=== PATIENT | male | born 1940 | race Caucasian/White ===

== ENCOUNTER 2016-12-07 08:00 | Inpatient (IN) | payer MEDICARE, OTHER ==
[~2016-12-07] VITALS: Ht 182.9 cm; Wt 58.2 kg
--- NOTE | ~2016-12-07 | CON ---
[facility] 76 [facility] [address] ROOM: [place] [address] LOCATION: GPCU ADMIT DATE: 12/07/2016 Consultation DISCHARGE DATE: FAMILY PHYSICIAN: Manjit Ray MD ATTENDING PHYSICIAN: STEFFANIE FUENTES DATE OF CONSULTATION: 12/07/2016 REFERRING PHYSICIAN: Amelie Verdin MD TIME: 1536 hours. The patient was seen in neurological consultation. CHIEF COMPLAINT: Altered mental status. HISTORY OF PRESENT ILLNESS: This history was obtained from his and from his chart as the patient has an altered status. This is a 76-year-old male with a history of a right MCA stroke requiring craniectomy. The patient got up to use the restroom and when he reached the kemp, the saw him fall. He was sleepy and the could not help him up, so she called 911. He went to the [facility], where a CT scan revealed no new processes. He was noted to have heart rates in the 40s, so he was started on dopamine and transferred to [facility]. He denies headache or hitting his head. There has been no weight loss or gain. He has a great appetite. He has had chills. He denies vision changes. There was no total loss of consciousness. REVIEW OF SYSTEMS: All systems were reviewed and are negative except as mentioned in the HPI. PRIOR MEDICAL HISTORY: 1. Right MCA stroke. 2. Factor V Leiden. 3. Hypothyroidism. 4. Right lower lobe nodule. 5. Hypertension. 6. Right lower extremity DVT. 7. IVC filter. 8. GERD. 9. Aspiration pneumonia. MEDICATIONS: 1. Amitiza 24 mcg p.o. daily p.r.n. constipation. PATIENT'S NAME: [facility] AGE: 76 Y [address] ROOM: [place] [address] LOCATION: GPCU ADMIT DATE: 12/07/2016 Consultation DISCHARGE DATE: FAMILY PHYSICIAN: Manjit Ray MD ATTENDING PHYSICIAN: STEFFANIE FUENTES 2. Docusate sodium 100 mg p.o. daily. 3. Warfarin. 4. Omeprazole 40 mg p.o. daily. 5. Ativan 0.5 mg p.o. q.i.d. p.r.n. anxiety. 6. Losartan 100 mg p.o. daily. 7. Flomax 0.4 mg p.o. q.h.s. 8. Levothroid 75 mcg p.o. daily a.c. 9. VESIcare 10 mg p.o. daily for bladder spasms. 10. Mag-Ox 400 mg p.o. daily. 11. Cholecalciferol 2000 units one tab p.o. daily. 12. Zocor 20 mg p.o. q.h.s. 13. Vitamin B12 1000 mcg/mL, 1000 mcg subcu. ALLERGIES: NO KNOWN MEDICAL ALLERGIES. FAMILY HISTORY: His father did have diabetes. SOCIAL HISTORY: He denies alcohol or drug use. No smoking history. PHYSICAL EXAMINATION: VITAL SIGNS: Blood pressure 145/80, heart rate 45, temp 99, respirations 16. GENERAL: Drowsy but arousable. Thin in stature. HEENT: Atraumatic and normocephalic. SKIN: Mottling to bilateral knees. NEURO: Arousable and oriented to self only. NIH stroke scale shows left arm drift and ataxia. He does not know the age or his month. NIH Stroke Scale is 4. No focal weakness except the left arm drift. DIAGNOSTIC DATA: His MRI reveals no new ischemia or hemorrhage. His right MCA area shows a previous infarct. His UA does have packed field of WBCs and many bacteria. Thankfully, in summary the patient has had no new stroke. His mentation is certainly not baseline. ASSESSMENT AND PLAN: 1. Acute metabolic encephalopathy. We will await urine cultures. He is being treated for his urine. We can follow with serial neuro exams. 2. In monitoring the patient, we could consider seizure on the list of differentials. He did not have any tonic-clonic movement or head turning or incontinence, but we can monitor him here in the hospital. 3. Bradycardia. The patient is being treated with dopamine. After his urine clears up, they may consider a pacemaker. PATIENT'S NAME: GABRIEL TRAMMELL [facility] AGE: 76 Y [address] ROOM: [place] [address] [facility] ADMIT DATE: 12/07/2016 Consultation DISCHARGE DATE: FAMILY PHYSICIAN: Manjit Ray MD ATTENDING PHYSICIAN: STEFFANIE FUENTES We would like to thank Dr. Verdin for the opportunity to participate in this patient's care. LAURIE GOTTLIEB APRN FOR EMRE ALEXANDER MD PP/modl /[id number] d: 12/18/16 1251 t: 01/08/17 1629, CONSULTATION REPORT
--- NOTE | ~2016-12-07 | ESTC ---
Cardiac Perfusion Imaging Demographics Patient Name VALERI Bradford Gender Male Patient Number [id number] Race Visit Number [id number] Ethnicity Corporate ID Room Number G6303 Accession Number [id number] Height 72 inches Date of 1940 Weight 132 pounds Interpreting Velvet Kinsey Date of study 12/10/2016 Physician Supervising /HEMANTP Velvet Kinsey NM Technologist Venus De La Paz MD Ordering Physician Velvet Kinsey Stress MD low voltage technician Stress ECG Reading Velvet Kinsey Nurse Chan Bradford Physician RN Latisha Cedillo RN Medications Reviewed with Patient prior to Procedure. Procedure Procedure Type: Nuclear Stress Test:Pharmacological, Lexiscan, Cardiolite Stress Test Procedure Start time: 12/10/2016 09:20 Indications: Elevated Troponin, Bradycardia, Hypertension and Dyslipidemia. Risk Factors The patient risk factors include:cerebrovascular disease, hypercholesterolemia, treated hypertension and dyslipidemia. Conclusions Summary Lexiscan cardiolite with no EKG changes of ischemia. Medium to large inferior fixed defect of moderate degree most consistent with soft tissue attenuation. LVEF: 67%. Normal WM. Stress Protocols Resting ECG RSR. PACs. Pre-stress physical exam: Un changed. Predicted HR: 143 bpm ECG Findings No ECG changes suggestive of ischemia. Arrhythmias No new rhythm abnormality. Symptoms No symptoms with Lexiscan infusion. Stress Interpretation Lexiscan study with normal hemodynamic response. No symptoms. No EKG changes of ischemia or arrythmias. Imaging Results High risk findings Summed scores - LV dilatation (TID) - Summed stress score: 7 - Summed rest score: 14 - Summed difference score: -7 Stress ejection Ejection fraction:68 % EDV :120 ml ESV :39 ml Stroke volume :81 ml LV mass :146 gr LV size:Normal Normal LV function Imaging Protocols Rest Stress Isotope:Tc99m Sestamibi IV Isotope: Tc99m Sestamibi IV Isotope dose:10.6 mCi Isotope dose:33.1 mCi Date:12/10/2016 07:17 Date:12/10/2016 10:06 Technique: SPECT Technique: Gated Supine SPECT Supine IV remains in place after procedure. Scan Time:45-60 minutes post Scan Time:45-60 minutes post injection injection Procedure Medications - Regadenoson (Lexiscan) 0.4 mg IV over 10-15 sec. I.V. 0.4 mg. Medications administered per verbal order and read back to physician prior to administration. Medical History Admission Data Admission date: 12/07/2016 Admission Time: 09:00 Hospital Status: Inpatient. Signatures dtt: Amelie Verdin dtd: 12/10/16 0920 Physician Self Edit
--- NOTE | ~2016-12-07 | DS ---
PATIENT'S NAME: GABRIEL TRAMMELL [facility] AGE: 76 Y [address] ROOM: [address] [address] LOCATION: GPCU ADMIT DATE: 12/07/2016 Discharge Summary DISCHARGE DATE: 12/19/2016 FAMILY PHYSICIAN: Manjit Ray MD ATTENDING PHYSICIAN: Spencer Whyte DISCHARGE DIAGNOSES: 1. Urosepsis. 2. Sick sinus syndrome, status post pacer. 3. Hypothyroidism, treated. 4. Hypertension with moderate to severe mitral regurgitation. 5. Severe malnutrition. 6. History of CVA. 7. Factor V deficiency. 8. Left hip fracture, status post operative repair and internal fixation. PROCEDURES: Hip repair. REASON FOR ADMISSION: The patient was admitted for altered mental status and diagnosed with acute metabolic encephalopathy. It turned out he had sepsis secondary to a really odd urinary pathogen. He had symptomatic bradycardia and received a pacer, and then the day he was supposed to be discharged, he fell and broke his left hip and had internal fixation. LABORATORY DATA: Blood sugars have been beautiful. Chemistries: His last set of electrolytes were excellent with normal sodium, potassium, BUN and creatinine were normal. GFR was 72. His liver function tests were normal except for alkaline phosphatase, which was actually just low. Indirect bilirubin was minimally elevated at 0.9 and a direct was normal. Hematology: Last white count was 10.1 that was down from 10.5; hemoglobin 9.7 postoperatively, apparently had a normal hemoglobin preoperatively, though his MCV is elevated at 101. He is taking B12. His platelets were normal. He has a factor V Leiden deficiency. He is heterozygous for that. Urinalysis today showed 20-50 white cells with only 0-2 epithelials, 10-20 red cells, moderate bacteria. HOSPITAL COURSE: He has been literally up and down with his pacer, hip repair, and his delirium. He is a little bit quieter today, which is why we checked a UA. I am going to cover him with Levaquin 750 for 5 days to nuke whatever is in his bladder, and I think we should have that covered. Given his white count is okay and his physical exam is benign, we will go ahead and discharge him to intermediate care today. Note that he will need to be on Lovenox fully anticoagulated until his Coumadin is up to therapeutic because of his factor V Leiden deficiency. We will give him some iron for a month to bring his hemoglobin back up. Percocet is written for pain, and Cardiology PATIENT'S NAME: GABRIEL TRAMMELL [facility] AGE: 76 Y [address] ROOM: [place] [address] LOCATION: GPCU ADMIT DATE: 12/07/2016 Discharge Summary DISCHARGE DATE: 12/19/2016 FAMILY PHYSICIAN: Manjit Ray MD ATTENDING PHYSICIAN: Spencer Whyte added a low dose of beta tawanna to his regimen this morning because he had a 10-beat run of ventricular tachycardia last night. It was unsustained and asymptomatic, so feeling is that with amiodarone and beta-tawanna therapy he is still good to go. Diet will be per dietary. Note that he is severely malnourished, and that will be an issue ongoing. Medications will be per nursing medication reconciliation and activity will be per physical therapy and orthopedics. Followup will be with primary, Dr. Manjit Ray, and Dr. Verdin as well as Orthopedics. MD RACHANA BRIAN/nadeen /[id number] d: 12/19/16 2353 t: 12/20/16 1709, DISCHARGE SUMMARY
--- NOTE | ~2016-12-07 | ECHO ---
Transthoracic Echocardiography Report (TTE) Demographics Patient Name GABRIEL TRAMMELL Date of Study 12/07/2016 Patient Number [id number] Visit Number [id number] Date of 1940 Room Number G6303 Gender Male Number Age 76 year(s) Referring Velvet Kinsey Therapy Aide Nena Sifuentes RDCS, Physician RVT, RDMS, UNION CONTRACT REPRESENTATIVESALVADOR Huertas MD Physician Interpreting Velvet Kinsey MD Recovery Advocate Physician Supervising Ordering MD/MLP Physician Nurse Stress Agricultural Systems Specialist Conclusions Contractility Score Summary At rest the following contractility abnormalities were noted: Hypokinesis of the Basal infero-lateral segment. Contractility of all other segments appeared normal. Summary The estimated left ventricular ejection fraction is 60-65% with normal WM,internal dimension and wall thickness. Diastolic assessment reveals Grade II pseudonormal diastolic function . Mild biatrial dilatation. Informed consent was obtained, bubble study was done, there is no evidence for a PFO or ASD. Moderate to severe mitral regurgitation. The aortic valve is mildly sclerotic. There is moderate aortic regurgitation by color Doppler. Mild tricuspid regurgitation by color Doppler. There is mild pulmonary hypertension. The pulmonary pressure (RVSP) is 42 mmHg. Procedure Type of Study TTE procedure:2D Echocardiogram, M-Mode, Doppler , Color Doppler. Procedure Date Date: 12/07/2016 Start: 04:04 PM Study Location: Inpatient Portable Technical Quality: Fair due to lung interference. Indications:Bradycardia. Additional Indications:syncope vs. stroke with bubble per Dr. Chaidez Patient Status: Timed HR: 46 bpm BP: 166/67 mmHg M-Mode/2D Measurements LV Diastolic Dimension: 3.92 cm LV Systolic Dimension: 2.19 cm LV Septum Diastolic: 1.06 cm LV PW Diastolic: 1.05 cm AO Root Dimension: 2.6 cm Cardiac Output: 4.53 l/min AV Cusp Separation: 2.3 cm RV Diastolic Dimension: 2.61 cm LA volume: 62 ml LVOT: 1.8 cm RV Base: 3.8 cm LVOT VTI: 38.7 cm RV Mid: 2.4 cm LV Stroke volume: 98.43 ml TDI-S': 13 cm/s Doppler Measurements AV Peak Velocity: 1.56 m/s MV Peak E-Wave: 1.02 m/s AV Peak Gradient: 9.73 mmHg MV Peak A-Wave: 0.57 m/s AV Mean Gradient: 4 mmHg MV E/A Ratio: 1.78 LVOT Peak Velocity: 1.33 m/s MV P1/2t: 61 msec AV P1/2t: 762 msec TR Gradient:33.87 mmHg PV Peak Velocity: 0.97 m/s Estimated RAP:8 mmHg PV Peak Gradient: 3.78 mmHg Estimated RVSP: 42 mmHg Estimated PASP: 41.87 mmHg E' Septal Velocity: 0.07 m/s A' Septal Velocity: 0.07 m/s E' Lateral Velocity: 0.09 m/s A' Lateral Velocity: 0.08 m/s Findings Left Ventricle The left ventricle with normal internal dimension,wall thickness,WM and EF. Diastolic assessment reveals Grade II pseudonormal diastolic function . Right Ventricle Normal right ventricle structure and function. Left Atrium The left atrium is mildly dilated by LA volume index measurement. Informed consent was obtained, bubble study was done, there is no evidence for a PFO or ASD. Right Atrium Mildly dilated RA. Mitral Valve Moderate to severe functional mitral regurgitation by color Doppler is present. PISA data is inaccurate due to technical limitations. The vena contracta is 0.41 cm., which is consistent with moderate mitral regurgitation. Systolic flow reversal is demonstrated in the pulmonary vein waves and is consistent with severe regurgitation. Mild mitral annular calcification. Aortic Valve The aortic valve is mildly sclerotic. There is moderate aortic regurgitation by color Doppler. Regurgitant jet height to lvot ratio is 0.28. Tricuspid Valve Mild tricuspid regurgitation by color Doppler. There is mild pulmonary hypertension. The pulmonary pressure (RVSP) is 42 mmHg. Pulmonic Valve Trivial pulmonic valve regurgitation by color Doppler. Normal pulmonic valve structure and function. Pericardial Effusion No evidence of pericardial effusion. Miscellaneous Visualized portions of the aortic root and ascending aorta appear normal in size. Pleural Effusion No evidence of pleural effusion. Signature dtt: Amelie Verdin dtinder: 12/07/16 1604 Physician Self Edit
--- NOTE | ~2016-12-07 | CON ---
PATIENT'S NAME: GABRIEL TRAMMELL [facility] AGE: 76 Y [address] ROOM: [place] [address] LOCATION: GPCU ADMIT DATE: 12/07/2016 Consultation DISCHARGE DATE: FAMILY PHYSICIAN: Manjit Ray MD ATTENDING PHYSICIAN: STEFFANIE FUENTES DATE OF CONSULTATION: 12/11/2016 REFERRING PHYSICIAN: Kilo Fields MD REASON FOR CONSULT: Upper arm skin tears. HISTORY OF PRESENT ILLNESS: This is a 76-year-old male patient who was admitted to [facility] with altered mental status. He has a history of CVA, hypertension, and venous insufficiency. He is from [place]. He was found by his in the hallway and first presented to [place] and transferred here for further care. On my encounter, he is yelling out and slightly agitated. He is unable to provide the health history. No family at bedside. Nursing reports scattered skin tears to his arms as well as venous staining to his lower legs. Brasher catheter intact. The patient is in a Id- bed. PAST MEDICAL HISTORY: Obtained from previous records; CVA, factor V deficiency, hypothyroidism, hypertension, DVT, GERD, and aspiration pneumonia. PAST SURGICAL HISTORY: Appendectomy, varicose vein stripping, and craniotomy. FAMILY HISTORY: Positive for lung cancer. SOCIAL HISTORY: The patient lives in [place] with his . Per previous records, no toxic habits or tobacco use noted. ALLERGIES: NO KNOWN DRUG ALLERGIES. CURRENT MEDICATIONS: Please refer to the medication administration record. PATIENT'S NAME: GABRIEL TRAMMELL [facility] AGE: 76 Y [address] ROOM: [place] [address] LOCATION: GPCU ADMIT DATE: 12/07/2016 Consultation DISCHARGE DATE: FAMILY PHYSICIAN: Manjit Ray MD ATTENDING PHYSICIAN: STEFFANIE FUENTES REVIEW OF SYSTEMS: Unable to complete due to the patient's mentation. PHYSICAL EXAMINATION: VITAL SIGNS: Temperature 95.3, pulse 43, respirations 16, blood pressure 168/72, and pulse oximetry 99% on room air. Height 6 feet even and weight 57.3 kg. GENERAL: The patient is alert, yelling out. States he is in [place]. Does note he is in the hospital. Agitated at times. NEUROLOGICAL: Unable to fully assess. CARDIOVASCULAR: Bradycardia on monitor. EXTREMITIES: +1 pedal pulses at best. No edema. Obvious hemosiderin staining. Mycotic toenails. Bony arthritic changes. SKIN: Bilateral arms covered with ecchymosis. The patient has 3 intact brown scabs to his left elbow. Dry skin tear present. Small skin tear to left hand, reapproximated flap. Groin folds intact. The patient refused buttocks examination. Nursing noted no current issues. LABORATORY DATA: White blood cell count 6.5, hemoglobin 11.8, hematocrit 34.9, and platelets 195. Sodium 141, potassium 3.9, chloride 108, bicarbonate 27, BUN 12, creatinine 1.1, and glucose 125. ASSESSMENT AND PLAN: Again, this is a 76-year-old male patient who was admitted to [facility] with altered mental status. Wound Care consult for upper arm skin tears. 1. Bilateral arm ecchymoses with left hand skin tear. The patient needs protection and emollient therapy. I encouraged Nursing to apply Aloe [place] as needed. Nursing notes the patient does like to apply himself. Encouraged it to be at the bedside. We will cover left hand skin tear with a foam dressing, leaving intact for one week. Nursing may change p.r.n. saturation or if it falls off. The patient is to have elbow protectors on and bilateral bandage to his arms at all times. 2. Pressure ulcer prevention. I would like Nursing to turn him in bed q.2 hours from side to side. He is to have bilateral foam boots on to prevent heel ulcers. Dietary is current on his case. I would like to thank Dr. Fields for this consult. MARVIN NG APRN FOR MICAH RADER MD PATIENT'S NAME: GABRIEL TRAMMELL [facility] AGE: 76 Y [address] ROOM: [place] [address] LOCATION: GPCU ADMIT DATE: 12/07/2016 Consultation DISCHARGE DATE: FAMILY PHYSICIAN: Manjit Ray MD ATTENDING PHYSICIAN: STEFFANIE FUENTES/modl /[id number] d: 12/11/16 1913 t: 12/27/16 0840, CONSULTATION REPORT
--- NOTE | ~2016-12-07 | HP ---
PATIENT'S NAME: GABRIEL TRAMMELL [facility] AGE: 76 Y [address] ROOM: [place] [address] LOCATION: GPCU ADMIT DATE: 12/07/2016 History & Physical DISCHARGE DATE: FAMILY PHYSICIAN: PHYSICIAN, UNKNOWN ATTENDING PHYSICIAN: STEFFANIE FUENTES DATE OF SERVICE: CHIEF COMPLAINT: Altered mental status. HISTORY OF PRESENT ILLNESS: A 76-year-old gentleman with a past medical history of right middle cerebral artery extensive stroke, also has a history of factor V deficiency, on chronic anticoagulation. He was at home this morning when he was found, about 4:30, lying in the hallway by the . Last time seen normal was about 10 p.m. He was difficult to arouse at this point and had altered mental status and decreased alertness. He was taken to the [facility] where a CAT scan and initial lab work were done and was transferred here for further medical care. Initial CAT scan did not show any acute intracranial changes except he had old right frontoparietal and temporal chronic encephalomalacia given he had a stroke as well as craniotomy done. On my encounter, he is still drowsy, but he is answering questions appropriately and moving all extremities purposefully. He, in the outside hospital, was started on dopamine drip given he has low heart rates, which he has a history of. EKG was also done in the outside facility which showed sinus bradycardia with rates at 45. He said he does not have any headache at this point, does not have any trouble, does not have any chest pain. No shortness of breath. No sputum production. He specifically said he does not have any burning on urination. No constipation or diarrhea. No extremity swelling. REVIEW OF SYSTEMS: All other systems reviewed and were negative except what is mentioned in the HPI. PAST MEDICAL HISTORY: Significant for CVA; factor V deficiency; hypothyroidism; right lower lobe nodule; hypertension; and right lower extremity DVT, status post IVC filter. He has a history of GERD and aspiration pneumonia. MEDICATIONS: Being reconciled right now. ALLERGIES: NO KNOWN DRUG ALLERGIES. PATIENT'S NAME: MALINDA TRAMMELLTIS Sanchez [facility] AGE: 76 Y [address] ROOM: [place] [address] LOCATION: GPCU ADMIT DATE: 12/07/2016 History & Physical DISCHARGE DATE: FAMILY PHYSICIAN: PHYSICIAN, UNKNOWN ATTENDING PHYSICIAN: STEFFANIE FUENTES FAMILY HISTORY: Positive for diabetes in father. SOCIAL HISTORY: No alcohol or drug abuse. PHYSICAL EXAMINATION: VITAL SIGNS: Blood pressure 145/80 on 3 mcg of dopamine, heart rate 45, temperature 99 axillary, respiratory rate of 16, and saturating 95% on room air. GENERAL: Drowsy, but alert and oriented x3. HEENT: Head: Atraumatic, normocephalic. Eyes: Nonicteric. No pallor. Oropharynx: Very dry mucous membranes. CARDIOVASCULAR: S1 and S2, bradycardic. No murmurs, gallops, or rubs. LUNGS: Clear to auscultation bilaterally. ABDOMEN: Soft, nontender, and nondistended. Bowel sounds are present. EXTREMITIES: No clubbing, cyanosis, or edema. PSYCHIATRIC: Flat mood and affect. MUSCULOSKELETAL: Extensive sarcopenia noted. No muscle tenderness or joint swelling noted. SKIN: Very dry skin noted. NEUROLOGIC: On gross neurological examination, right side power is 5/5 in the upper and lower extremities, left side power 3/5. ENDOCRINE: No thyromegaly or myxedema noted. LYMPHATIC: No lymphangiitis or lymphadenopathy noted. LABORATORY AND DIAGNOSTIC DATA: As mentioned above, CT scan did not show any acute changes, but rather old changes of the right stroke and craniotomy with underlying encephalomalacia. Lab work was done at the outside facility which was only impressive for creatinine of 1.6, and first set of troponin was 0.017. CBC and BMP were unremarkable. UA was done which did show evidence of elevated leukocyte esterase and too numerous to count white blood cells. No chest x-ray was obtained over there. ASSESSMENT: 1. Acute metabolic encephalopathy. 2. Likely sepsis. 3. Symptomatic bradycardia. 4. Elevated troponin levels. 5. Hypothyroidism. 6. History of deep venous thrombosis, status post IVC filter. PATIENT'S NAME: GABRIEL TRAMMELL [facility] AGE: 76 Y [address] ROOM: [address] [place], [place] [address] LOCATION: GPCU ADMIT DATE: 12/07/2016 History & Physical DISCHARGE DATE: FAMILY PHYSICIAN: PHYSICIAN, UNKNOWN ATTENDING PHYSICIAN: KHALID,VALIENTE A 7. Hypertension. 8. Gastroesophageal reflux disease. 9. Of note, his INR was found therapeutic at 2.5 at the outside facility. PLAN: We are going to admit this patient to the PCU here. At this point, the differential diagnosis of acute metabolic encephalopathy is broad, but first we are going to treat this urinary tract infection and give him intravenous fluids as well as antibiotics. We are going to obtain urine culture, 2 sets of blood cultures, and repeat troponin levels here. Cardiology is already aware of this patient, and they recommended to the outside facility to start the dopamine drip. We will get them involved as well. Once the basic lab work is done and initial bolus of fluids is given, we will get the patient to the MRI to delineate if there is any intracranial ischemic or ischemic etiology to this encephalopathy. He is already therapeutically anticoagulated. SCDs only at this point. We are going to check for prealbumin level. He has severe malnutrition. Chest x-ray is pending at this point. ABG and lactate are also pending. We are also going to obtain procalcitonin level. Further management will depend upon his progress in the hospital. MD SMITH GUZMAN/nadeen /[id number] D: T: 655 HISTORY & PHYSICAL
--- NOTE | ~2016-12-07 | CON ---
PATIENT'S NAME: MALINDA TRAMMELLTIS Sanchez [facility] AGE: 76 Y [address] ROOM: [id number] [place], [place] [address] LOCATION: GPCU ADMIT DATE: 12/07/2016 Consultation DISCHARGE DATE: FAMILY PHYSICIAN: PHYSICIAN, UNKNOWN ATTENDING PHYSICIAN: STEFFANIE FUENTES DATE OF CONSULTATION: 12/07/2016 REFERRING PHYSICIAN: Amelie Verdin MD Dear Colleagues: Thank you for asking me to see Alona who is a 76-year-old male patient who was found by his around 430 in the morning, lying in the hallway with some decreased responsiveness. He was last seen in his usual state of health around 10:00 p.m.. He was taken to [facility] where he had reasonably good power in all his four extremities, but he was still fairly drowsy. He was trying to answer some of the questions. His heart rate was in the upper 30s and lower 40s and I was called. I had suggested putting him on dopamine 2 mcg and transfer him here with the possibility of this being postictal state or something related to bradycardic episodes or pauses. The patient had left-sided hemiplegia about 3 years ago. He has recovered to some extent from that and is currently able to get around with a cane. He denies having any trouble with chest pains or shortness of breath. His functional capacity is difficult to measure because he is not on any sustained exercise program. He currently does activities there are definitely less than four METS. He has no paroxysmal nocturnal dyspnea or orthopnea. He has not had any previous episodes like these and had denies having any lightheadedness, dizziness, syncope, or presyncope. He denies any palpitations or ankle swelling. The patient has history of hypertension and elevated cholesterol. He is not a diabetic and he is not a smoker. There is no family history of premature coronary artery disease. He denies PA or angina or nitroglycerin use. He has a history of rheumatic fever and heart murmur. He has never had congestive heart failure or atrial fibrillation. He has factor V Leiden deficiency for which he is on chronic Coumadin therapy. His current list of medications are, 1. Amitiza one a day. 2. Allergy extracts. [facility] 76 Y [address] ROOM: [address] [address] LOCATION: GPCU ADMIT DATE: 12/07/2016 Consultation DISCHARGE DATE: FAMILY PHYSICIAN: PHYSICIAN, UNKNOWN ATTENDING PHYSICIAN: STEFFANIE FUENTES 3. MiraLAX. 4. Stool softener. 5. Warfarin 2 mg. 6. Omeprazole 40 mg a day. 7. Lorazepam 0.5 mg 4 times a day. 8. Losartan 100 mg once a day. 9. Tamsulosin 0.4 mg a day. 10. Synthroid 75 mcg a day. 11. VESIcare 10 mg once a day. 12. Magnesium oxide 400 mg a day. 13. Vitamin D3. 14. Zocor 20 mg a day. 15. Cyanocobalamin 1 mg monthly. ALLERGIES: NO KNOWN DRUG ALLERGIES. PAST MEDICAL HISTORY: 1. History of pernicious anemia. 2. Factor V Leiden deficiency. 3. Hypothyroidism. 4. Frontal lobe dementia. 5. History of CVA as mentioned earlier with cognitive impairment. 6. History of venoablation therapy due to venous insufficiency. 7. GERD. 8. IBS. 9. CKD. 10. Neurogenic bladder. 11. BPH. 12. Chronic anticoagulation therapy. 13. Status post craniotomy for CVA. 14. Inferior vena cava filter. 15. Appendectomy. 16. Herniorrhaphy on the inguinal aspect. 17. History of PEG tube placement and suprapubic tube placement. SOCIAL HISTORY: The patient is . He denies abusing alcohol. His appetite and weight are stable. Sleep is poor. FAMILY HISTORY: No premature coronary artery disease. REVIEW OF SYSTEMS: A 12-point review of systems revealed the following positives. PATIENT'S NAME: GABRIEL TRAMMELL [facility] AGE: 76 Y [address] ROOM: [address] [address] LOCATION: GPCU ADMIT DATE: 12/07/2016 Consultation DISCHARGE DATE: FAMILY PHYSICIAN: PHYSICIAN, UNKNOWN ATTENDING PHYSICIAN: STEFFANIE FUENTES 1. History of migraine headaches in the distant past. 2. History of allergies. 3. Heartburns. 4. Questionable history of gallbladder problems. 5. Depression. 6. Skin cancers. PHYSICAL EXAMINATION: GENERAL: The patient is awake and alert. He easily falls asleep. VITAL SIGNS: His blood pressure is 160/80, heart rate is in the 40s and regular on 2 mcg of dopamine, respirations 18, and afebrile. HEENT: Normal. NECK: Supple. No JVD, thyromegaly, lymphadenopathy, or carotid bruit. PMI is not well located. HEART: First and second heart sounds are regular. There are no added sounds or murmurs. CHEST: Clear to auscultation. ABDOMEN: Soft and nontender. Bowel sounds are normally present. EXTREMITIES: Reveal no edema. CENTRAL NERVOUS SYSTEM: Intact. ASSESSMENT: A 76-year-old male patient who had an episode of unresponsiveness this morning. This is either due to a seizure activity or due to significant bradycardia, pauses, or arrhythmias. RECOMMENDATIONS: We will have the neurologist see him and he is getting an MRI of the brain as well. In the meantime, we will hold off the Coumadin for the time being and start heparin if he becomes subtherapeutic less than 2. There is a possibility he might benefit from a permanent pacemaker placement. We will check his echocardiogram, rule him out and check his proBNP and then possibly at least do a stress test before proceeding ahead with a permanent pacemaker. Again, I appreciate this opportunity to participate in the care of Alona. MD LUIS M LAINEZ/nadeen PATIENT'S NAME: GABRIEL TRAMMELL [facility] AGE: 76 Y [address] ROOM: [place] [address] LOCATION: GPCU ADMIT DATE: 12/07/2016 Consultation DISCHARGE DATE: FAMILY PHYSICIAN: PHYSICIAN, UNKNOWN ATTENDING PHYSICIAN: STEFFANIE FUENTES /[id number] d: 12/07/167 t: 12/11/16 1224, CONSULTATION REPORT
--- NOTE | ~2016-12-07 | CON ---
[facility] 76 [facility] [address] ROOM: [place] [address] LOCATION: GPCU ADMIT DATE: 12/07/2016 Consultation DISCHARGE DATE: FAMILY PHYSICIAN: Manjit Ray MD ATTENDING PHYSICIAN: STEFFANIE FUENTES DATE OF CONSULTATION: 12/15/2016 REFERRING PHYSICIAN: Amelie Verdin MD TIME: 8 p.m. HISTORY OF PRESENT ILLNESS: Mr. Trammell is a 76-year-old gentleman. He was admitted to [place] on December 07 with a stroke. Care required placement of a pacemaker. Sustained an injury to his left hip with a displaced base of femoral neck fracture. No other injuries. Prior to admission, he was a limited household ambulator. MEDICATIONS: See list which includes anticoagulation with heparin. ALLERGIES: ONLY ENVIRONMENTAL. PAST MEDICAL HISTORY: Stroke; factor V deficiency, anticoagulated; hypothyroidism; hypertension; and DVT, status post IVC filter. SOCIAL HISTORY: He does not currently smoke or drink. FAMILY MEDICAL HISTORY: Remarkable for diabetes. PERSONAL AND SOCIAL HISTORY: He lives at home with his , but barely getting by. PHYSICAL EXAMINATION: GENERAL: A cachectic, white male in minimal distress. HEENT: Hears and sees. BACK: Nontender. PELVIS: Stable. HEART: Pulse rate is regular. LUNGS: Able to take in a deep breath. PATIENT'S NAME: GABRIEL TRAMMELL [facility] AGE: 76 Y [address] ROOM: [place] [address] LOCATION: GPCU ADMIT DATE: 12/07/2016 Consultation DISCHARGE DATE: FAMILY PHYSICIAN: Manjit Ray MD ATTENDING PHYSICIAN: STEFFANIE FUENTES ABDOMEN: Soft and nontender. EXTREMITIES: Painful motion of the left hip. Can move both of his legs. IMAGING DATA: X-rays show a displaced left hip base of neck fracture. Minimal osteoarthritis. ASSESSMENT AND PLAN: For reduction and fixation of left hip fracture with TFN system. Risks, benefits, and alternatives have been discussed with the patient, the daughter, and the . Understand there is no guarantee that he will return to ambulation. Certainly, he is very osteoporotic and is at risk for additional fractures. Important to avoid falls. JON STINSON MD DPM/nadeen /[id number] d: 12/16/16 1326 t: 12/19/16 1222, CONSULTATION REPORT
--- NOTE | ~2016-12-07 | OR ---
PATIENT'S NAME: GABRIEL TRAMMELL [facility] AGE: 76 Y [address] ROOM: [address] [address] LOCATION: GPCU ADMIT DATE: 12/07/2016 OR/Procedure Report DISCHARGE DATE: FAMILY PHYSICIAN: Manjit Ray MD ATTENDING PHYSICIAN: STEFFANIE FUENTES SURGEON: Campbell Stinson MD TAX ADJUSTER: DATE OF PROCEDURE: 12/16/2016 DIAGNOSIS: Displaced left hip base and neck fracture. PROCEDURE: Reduction of left hip fracture and fixation with TFN system. ANESTHESIA: General. INDICATION: Left hip displaced base and neck fracture for reduction and fixation. Risks, benefits, and alternatives have been discussed with the patient and the family. No guarantee of return to ambulation. DESCRIPTION OF PROCEDURE: Mr. Trammell was taken to the operating room, 2 g Kefzol given intravenously for prophylaxis. General anesthetic via endotracheal tube. Placed on the fracture table supine position. Right leg was protected in the candy cane. Left leg was placed in traction and gently reduced the fracture, documented good reduction with the fluoroscope. The left flank, hip, and thigh prepared with DuraPrep, draped sterilely. A 3 cm incision was made just above the greater trochanter in line with the axis of the femur. Dissection to the iliotibial band. Iliotibial band was divided longitudinally for the length incision. Using AO Synthes system, guidewire was placed through the greater trochanter down the canal, proximally reamed. A mid length 11 mm diameter alejandra was driven in place. The alignment guide was used to place a guidewire through the neck into the head. This was confirmed good position with the fluoroscope. Lateral cortex drilled, 100 mm helical blade was driven in place. It was locked in a dynamic position. Distal locking screw placed. Procedure was done without complications. Wounds irrigated. Iliotibial band closed with 0 Vicryl. Subcutaneous tissues closed with 2-0 Vicryl. Skin was closed with jemima. Procedure was done without complication. Estimated blood loss from the procedure was 150 mL, to recovery room in stable condition. FINDINGS: Good reduction of the fracture and adequate fixation. CAMPBELL P STINSON, MD PATIENT'S NAME: GABRIEL TRAMMELL [facility] AGE: 76 Y [address] ROOM: [address] [address] LOCATION: [facility] ADMIT DATE: 12/07/2016 OR/Procedure Report DISCHARGE DATE: FAMILY PHYSICIAN: Manjit Ray MD ATTENDING PHYSICIAN: STEFFANIE FUENTES DPM/nadeen /[id number] d: 12/16/16 1338 t: 12/19/16 1219, OPERATIVE SUMMARY
--- NOTE | ~2016-12-07 | CON ---
[facility] 76 Y [address] ROOM: [place] [address] LOCATION: GPCU ADMIT DATE: 12/07/2016 Consultation DISCHARGE DATE: FAMILY PHYSICIAN: Manjit Ray MD ATTENDING PHYSICIAN: STEFFANIE FUENTES REFERRING PHYSICIAN: Amelie Verdin MD ORTHOPEDIC CONSULTATION: CHIEF COMPLAINT: Intertrochanteric fracture, left hip. HISTORY OF PRESENT ILLNESS: This 76-year-old male is currently hospitalized at [facility] for dementia with metabolic encephalopathy, history of stroke in the past, factor V deficiency, and anticoagulation. He had a pacemaker placed yesterday. Last evening, he tried getting out of bed without assistance and suffered an unwitnessed fall. He was found at the side of his bed complaining of pain in his left hip. X-rays demonstrate a high intertrochanteric type fracture. There were no other injuries. PAST MEDICAL HISTORY: 1. CVA. 2. Factor V deficiency. 3. Hypothyroidism. 4. Right lower lobe nodule. 5. Hypertension. 6. Right lower extremity DVT status post IVC filter. 7. History of GERD. 8. Aspiration pneumonia. 9. Metabolic dementia. ALLERGIES: NONE. PAST SURGICAL HISTORY: IVC filter. MEDICATIONS: 1. Cozaar. 2. Flomax. 3. Heparin IV. 4. Levothyroxine. 5. Protonix. 6. Vitamin B12. 7. Zocor. [facility] 76 Y [address] ROOM: [place] [address] LOCATION: GPCU ADMIT DATE: 12/07/2016 Consultation DISCHARGE DATE: FAMILY PHYSICIAN: Manjit Ray MD ATTENDING PHYSICIAN: STEFFANIE FUENTES 8. Ativan. 9. MiraLAX. 10. Seroquel. 11. [place]. 12. Tylenol. 13. He has been on Coumadin and Rocephin. SOCIAL HISTORY: No alcohol or drug abuse. FAMILY HISTORY: Diabetes in father. REVIEW OF SYSTEMS: Chronic confusion, generalized drowsiness and weakness. No chest pain or shortness of breath. No bowel or bladder dysfunction. He has a Brasher in. No malaise or fevers. It is difficult to assess his mental condition. Skin; he has some bruising likely related to anticoagulation. Lab values: Creatinine 1.6. Elevated troponin by history. CBC is unremarkable. PHYSICAL EXAMINATION: GENERAL: He is confused, cannot answer questions, and quite drowsy. Does open his eyes, but does not respond to my questions. VITAL SIGNS: Blood pressure 142/79, pulse is 70, respirations 14, and temperature 98.2. HEENT: Atraumatic and normocephalic. PERRL. EOMI. TMs clear. NECK: Supple. Nontender. CHEST: Faint rhonchi. No rales. HEART: Regular rhythm. ABDOMEN: Soft, nontender without masses. EXTREMITIES: Without edema. He has intact pulses. NEUROLOGIC: He dorsi and plantar flexes his feet upon command. He has good pulses. Sensation and motor intact. Reflexes equal. LABORATORY DATA AND IMAGING STUDIES: X-rays are reviewed from [facility]. AP pelvis and lateral of the left hip. There was a mildly displaced fracture at the base of the femoral neck extending from just above the lesser trochanter across and superiorly to its juncture with the greater trochanter. IMPRESSION: 1. Functionally, this is a high intertrochanteric fracture of the left hip. 2. History of stroke. 3. History of metabolic encephalopathy. PATIENT'S NAME: GABRIEL TRAMMELL [facility] AGE: 76 Y [address] ROOM: [place] [address] LOCATION: GPCU ADMIT DATE: 12/07/2016 Consultation DISCHARGE DATE: FAMILY PHYSICIAN: Manjit Ray MD ATTENDING PHYSICIAN: STEFFANIE FUENTES 4. Hypothyroidism. 5. Bradycardia. 6. Hypertension. 7. History of deep vein thrombosis status post inferior vena cava filter. 8. Gastroesophageal reflux. 9. History of being on Coumadin. PLAN: Medical clearance. We will have to stop his anticoagulants. ORIF of left hip with TFN nail. I will speak to his family to get the risks and benefits and discuss anesthetic, neurovascular, and infectious complications. He is at fairly high risk because of his multiple medical problems. MD GABE MONDRAGON/modl /[id number] d: 12/15/160 t: 12/26/16 0958, CONSULTATION REPORT
--- NOTE | ~2016-12-07 | OR ---
PATIENT'S NAME: GABRIEL TRAMMELL [facility] AGE: 76 Y [address] ROOM: [place] [address] LOCATION: GPCU ADMIT DATE: 12/07/2016 OR/Procedure Report DISCHARGE DATE: FAMILY PHYSICIAN: Manjit Ray MD ATTENDING PHYSICIAN: STEFFANIE FUENTES SURGEON: Amelie Verdin MD WEB ADMINISTRATOR: DATE OF PROCEDURE: 12/12/2016 PROCEDURE PERFORMED: Permanent pacemaker placement. INDICATION: 1. Syncopal spell. 2. Junctional rhythm with a heart rate in the 30s as well as sinus bradycardia in the lower 30s. DESCRIPTION OF PROCEDURE: After obtaining informed consent, the patient was brought to the cardiac catheterization laboratory and prepped and draped using standard sterile precautions. 2% Xylocaine was used to obtain local anesthesia over the left subclavian site. Modified Seldinger technique was used to place two guidewires into the IVC. A 3-cm long incision was made connecting the 2 guidewires. Blunt dissection was used to create a pocket for the pacemaker. Next the ventricular lead was placed which is a [employer] Aheadity MRI positive fix 59 cm model #7742, serial #[id number]. This had a stimulation threshold of 0.4 V at a pulse width of 0.5 milliseconds. Pacing impedance was 837 ohms, current is 0.5 milliamperes. The R-wave is 18.2 mV. This lead was sowed to the underlying muscle. Next, atrial lead was placed which is [employer], iLoop Mobileevity MRI bipositive fix 52-cm lead, model #7741, serial #[id number]. This had a stimulation threshold of 0.6 V at a pulse width of 0.5 milliseconds. P wave was 1.8 mV. Pacing impedance was 972 ohms. Current is 0.7 milliamperes. This lead is also fixed to the underlying muscle. Next, the pacemaker pocket was irrigated using antibiotic lotion. Next, the device was attached which is a [employer], [employer] MRI, model #L111, serial #[id number]. Device was then sewn to the underlying muscle. The pocket was then closed in 2 layers. Initially a ventricular lead that was attempted was serial #[id number] [employer], model #7742, had trouble getting the screw out. The battery parameters are DDDR mode rhythm, IQ was off, lower rate of 60, upper rate of 130, PAV delay of 140-210, GIDEON delay 125-180 milliseconds. AV search upto 320 milliseconds. PVARP is 250-330 milliseconds. Right atrium is left at 0.5 with auto output at 0.4 milliseconds. Right ventricle is left at 2.5 mV sensitivity auto output at 0.4 milliseconds. Right rate pacing with MV was turned on. Motion based pacing with the PATIENT'S NAME: GABRIEL TRAMMELL [facility] AGE: 76 Y [address] ROOM: [place] [address] LOCATION: GPCU ADMIT DATE: 12/07/2016 OR/Procedure Report DISCHARGE DATE: FAMILY PHYSICIAN: Manjit Ray MD ATTENDING PHYSICIAN: STEFFANIE FUENTES accelerator on. Sensing method is 6. VT EGM on at 160 beats per minute. ATR mode switch 160 beats per minute, atrial flutter response, on VRR off, rate smoothing off, sudden nalini response off. PaceSafe RVAC on. The patient tolerated the procedure well. There were no complications noted. MD LUIS M LAINEZ/nadeen /[id number] d: 12/12/161805 t: 12/19/16 1209, OPERATIVE SUMMARY
[2016-12-07 10:31] LABS: BICARBONATE 24.6 mmol/L (18.0-23.0); PCO2 38 mmHg (35-45); PO2 90 mmHg (80-90)
[2016-12-07 12:01] LABS: INR - (THERAPEUTIC) 2.43 (0.92-1.07); PROTIME 25.7 SECONDS (9.8-11.4)
[2016-12-07] MEDS ORDERED: AMITIZA24 MCG PO (15:41)
[2016-12-07] MEDS ORDERED: STOOL SOFTENER100 M1 PO (15:44)
[2016-12-07] MEDS ORDERED: COUMADIN ** 9/62 MG PO (15:46)
[2016-12-07] MEDS ORDERED: OMEPRAZOLE40 MG PO (15:47)
[2016-12-07] MEDS ORDERED: ATIVAN 1 MG1 MG PO (15:58)
[2016-12-07] MEDS ORDERED: COZAAR100 MG PO (15:58)
[2016-12-07] MEDS ORDERED: LEVOTHROID(SYN75 MCG PO (15:59)
[2016-12-07] MEDS ORDERED: FLOMAX0.4 MG PO (15:59)
[2016-12-07] MEDS ORDERED: VESICARE10 MG PO (16:00)
[2016-12-07] MEDS ORDERED: MAG-OX-400(241400 MG PO (16:01)
[2016-12-07] MEDS ORDERED: VITAMIN D-32000 UNI1 PO (16:02)
[2016-12-07] MEDS ORDERED: ZOCOR20 MG PO (16:02)
[2016-12-07] MEDS ORDERED: VITAMIN B-1000 MCG/M SUB-Q (16:03)
[2016-12-08 04:17] LABS: INR - (THERAPEUTIC) 2.57 (0.92-1.07); PROTIME 27.2 SECONDS (9.8-11.4)
[2016-12-08 11:02] LABS: HEMATOCRIT 40.6 % (37.0-53.0); HEMOGLOBIN 13.6 g/dL (11.0-16.0); MCH 33.3 pg (27.0-34.0); MCHC 33.5 gm/dL (32.0-36.5); MCV 99.5 fl (83.0-98.0); MPV 9.3 fl (9.4-12.4); PLATELET COUNT 220 K/uL (150-450); RDW-CV 12.6 % (11.9-14.6); WBC 4.8 K/uL (4.0-11.0)
[2016-12-08 11:10] LABS: RBC 4.08 M/uL (3.50-5.50)
[2016-12-08 11:17] LABS: ANION GAP 10.9 (10.0-19.0); CALCIUM 8.1 mg/dL (8.5-10.5); CREATININE 1.1 mg/dL (0.6-1.3); POTASSIUM 4.9 mMol/L (3.7-5.1)
[2016-12-08 12:07] LABS: BANDED NEUTROPHIL # 0.6 K/uL (0.0-0.1); BANDED NEUTROPHILS % 13 %; LYMPHOCYTE # 0.4 K/uL (0.8-4.0); LYMPHOCYTE % 8 %; MONOCYTE # 0.3 K/uL (0.0-1.0); SEGMENTED NEUTROPHIL # 3.4 K/uL (1.4-9.0); SEGMENTED NEUTROPHIL % 71 %
[2016-12-09 03:26] LABS: HEMATOCRIT 36.5 % (37.0-53.0); HEMOGLOBIN 11.9 g/dL (11.0-16.0); MCH 32.7 pg (27.0-34.0); MCHC 32.6 gm/dL (32.0-36.5); MCV 100.3 fl (83.0-98.0); PLATELET COUNT 185 K/uL (150-450); RBC 3.64 M/uL (3.50-5.50); RDW-CV 12.6 % (11.9-14.6); WBC 3.7 K/uL (4.0-11.0)
[2016-12-09 03:38] LABS: ANION GAP 9.4 (10.0-19.0); CALCIUM 7.9 mg/dL (8.5-10.5); CREATININE 1.1 mg/dL (0.6-1.3); POTASSIUM 4.4 mMol/L (3.7-5.1)
[2016-12-09 04:02] LABS: INR - (THERAPEUTIC) 2.23 (0.92-1.07); PROTIME 23.6 SECONDS (9.8-11.4)
[2016-12-09 04:19] LABS: ABSOLUTE NEUTROPHIL CT (ANC) 2.8 K/uL (1.4-9.0); BANDED NEUTROPHIL # 0.2 K/uL (0.0-0.1); BANDED NEUTROPHILS % 6 %; LYMPHOCYTE # 0.4 K/uL (0.8-4.0); LYMPHOCYTE % 12 %; MONOCYTE # 0.3 K/uL (0.0-1.0); SEGMENTED NEUTROPHIL # 2.6 K/uL (1.4-9.0); SEGMENTED NEUTROPHIL % 69 %
[2016-12-10 04:00] LABS: HEMATOCRIT 34.2 % (37.0-53.0); HEMOGLOBIN 11.6 g/dL (11.0-16.0); MCH 33.5 pg (27.0-34.0); MCHC 33.9 gm/dL (32.0-36.5); MCV 98.8 fl (83.0-98.0); MPV 9.3 fl (9.4-12.4); PLATELET COUNT 182 K/uL (150-450); RBC 3.46 M/uL (3.50-5.50); RDW-CV 12.7 % (11.9-14.6); WBC 5.8 K/uL (4.0-11.0)
[2016-12-10 04:13] LABS: ANION GAP 9.9 (10.0-19.0); CALCIUM 7.7 mg/dL (8.5-10.5); CREATININE 1.1 mg/dL (0.6-1.3); POTASSIUM 3.9 mMol/L (3.7-5.1)
[2016-12-10 04:36] LABS: INR - (THERAPEUTIC) 1.4 (0.92-1.07); PROTIME 14.8 SECONDS (9.8-11.4)
[2016-12-10 04:57] LABS: ABSOLUTE NEUTROPHIL CT (ANC) 4.8 K/uL (1.4-9.0); BANDED NEUTROPHIL # 0.8 K/uL (0.0-0.1); BANDED NEUTROPHILS % 13 %; LYMPHOCYTE # 0.2 K/uL (0.8-4.0); LYMPHOCYTE % 4 %; MONOCYTE # 0.6 K/uL (0.0-1.0); SEGMENTED NEUTROPHIL # 4.1 K/uL (1.4-9.0); SEGMENTED NEUTROPHIL % 70 %
[2016-12-11 09:17] LABS: INR - (THERAPEUTIC) 1.33 (0.92-1.07)
[2016-12-11 09:22] LABS: CREATININE 0.9 mg/dL (0.6-1.3)
[2016-12-11 09:24] LABS: POTASSIUM 3.7 mMol/L (3.7-5.1)
[2016-12-11 12:23] LABS: BASOPHIL % 0.2 %; EOSINOPHIL # 0.1 K/uL (0.0-0.5); EOSINOPHIL % 1.1 %; HEMATOCRIT 34.9 % (37.0-53.0); HEMOGLOBIN 11.8 g/dL (11.0-16.0); IMMATURE GRANULOCYTE % 0.3 %; LYMPHOCYTE # 0.6 K/uL (0.8-4.0); LYMPHOCYTE % 8.8 %; MCH 33.2 pg (27.0-34.0); MCHC 33.8 gm/dL (32.0-36.5); MCV 98.3 fl (83.0-98.0); MONOCYTE # 0.8 K/uL (0.0-1.0); MONOCYTE % 12.5 %; MPV 9.4 fl (9.4-12.4); NEUTROPHIL % 77.1 %; NRBC % 0 /100WBC (0-0.00); PLATELET COUNT 195 K/uL (150-450); RBC 3.55 M/uL (3.50-5.50); RDW-CV 12.4 % (11.9-14.6); WBC 6.5 K/uL (4.0-11.0)
[2016-12-12 04:02] LABS: INR - (THERAPEUTIC) 1.43 (0.92-1.07); PROTIME 15.1 SECONDS (9.8-11.4)
[2016-12-12 04:08] LABS: CALCIUM 7.8 mg/dL (8.5-10.5); CREATININE 0.8 mg/dL (0.6-1.3)
[2016-12-13 04:53] LABS: INR - (THERAPEUTIC) 1.69 (0.92-1.07); PROTIME 17.8 SECONDS (9.8-11.4)
[2016-12-13 17:01] LABS: BASOPHIL % 0.1 %; EOSINOPHIL % 0.4 %; HEMATOCRIT 34.6 % (37.0-53.0); HEMOGLOBIN 11.5 g/dL (11.0-16.0); IMMATURE GRANULOCYTE % 0.2 %; LYMPHOCYTE # 0.5 K/uL (0.8-4.0); LYMPHOCYTE % 6.6 %; MCH 32.7 pg (27.0-34.0); MCHC 33.2 gm/dL (32.0-36.5); MCV 98.3 fl (83.0-98.0); MONOCYTE # 0.7 K/uL (0.0-1.0); MONOCYTE % 8.2 %; MPV 9.2 fl (9.4-12.4); NEUTROPHIL % 84.5 %; NRBC % 0 /100WBC (0-0.00); PLATELET COUNT 188 K/uL (150-450); RBC 3.52 M/uL (3.50-5.50); RDW-CV 12.6 % (11.9-14.6); WBC 8.2 K/uL (4.0-11.0)
[2016-12-13 17:10] LABS: PROTIME 17.9 SECONDS (9.8-11.4)
[2016-12-14 06:23] LABS: INR - (THERAPEUTIC) 1.56 (0.92-1.07); PROTIME 16.5 SECONDS (9.8-11.4)
[2016-12-14 06:24] LABS: ANION GAP 10.8 (10.0-19.0); CALCIUM 8.3 mg/dL (8.5-10.5); CREATININE 1.1 mg/dL (0.6-1.3); POTASSIUM 3.8 mMol/L (3.7-5.1)
[2016-12-15 06:42] LABS: INR - (THERAPEUTIC) 1.53 (0.92-1.07); PROTIME 16.1 SECONDS (9.8-11.4)
[2016-12-16 05:24] LABS: BASOPHIL % 0.3 %; EOSINOPHIL # 0.1 K/uL (0.0-0.5); EOSINOPHIL % 1.8 %; HEMATOCRIT 34.5 % (37.0-53.0); HEMOGLOBIN 11.5 g/dL (11.0-16.0); IMMATURE GRANULOCYTE % 0.5 %; LYMPHOCYTE # 0.7 K/uL (0.8-4.0); LYMPHOCYTE % 8.5 %; MCHC 33.3 gm/dL (32.0-36.5); MCV 99.1 fl (83.0-98.0); MONOCYTE # 0.9 K/uL (0.0-1.0); MONOCYTE % 11.5 %; MPV 9.6 fl (9.4-12.4); NEUTROPHIL # (ANC) 6.1 K/uL (1.4-9.0); NEUTROPHIL % 77.4 %; NRBC % 0 /100WBC (0-0.00); PLATELET COUNT 199 K/uL (150-450); RBC 3.48 M/uL (3.50-5.50); RDW-CV 13.1 % (11.9-14.6); WBC 7.9 K/uL (4.0-11.0)
[2016-12-16 05:32] LABS: INR - (THERAPEUTIC) 1.81 (0.92-1.07); PROTIME 19.1 SECONDS (9.8-11.4)
[2016-12-16 05:41] LABS: ANION GAP 9.9 (10.0-19.0); POTASSIUM 3.9 mMol/L (3.7-5.1)
[2016-12-17 04:31] LABS: HEMATOCRIT 30.2 % (37.0-53.0); HEMOGLOBIN 9.8 g/dL (11.0-16.0)
[2016-12-17 04:39] LABS: INR - (THERAPEUTIC) 1.71 (0.92-1.07); PROTIME 18.1 SECONDS (9.8-11.4)
[2016-12-17 04:49] LABS: CALCIUM 7.8 mg/dL (8.5-10.5); CREATININE 1.1 mg/dL (0.6-1.3)
[2016-12-18 05:02] LABS: BASOPHIL % 0.1 %; EOSINOPHIL # 0.1 K/uL (0.0-0.5); EOSINOPHIL % 0.9 %; HEMATOCRIT 28.9 % (37.0-53.0); HEMOGLOBIN 9.7 g/dL (11.0-16.0); IMMATURE GRANULOCYTE % 0.3 %; LYMPHOCYTE # 0.7 K/uL (0.8-4.0); LYMPHOCYTE % 6.6 %; MCH 33.7 pg (27.0-34.0); MCHC 33.6 gm/dL (32.0-36.5); MCV 100.3 fl (83.0-98.0); MONOCYTE # 1.2 K/uL (0.0-1.0); MONOCYTE % 11.6 %; MPV 9.8 fl (9.4-12.4); NEUTROPHIL # (ANC) 8.5 K/uL (1.4-9.0); NEUTROPHIL % 80.5 %; NRBC % 0 /100WBC (0-0.00); PLATELET COUNT 207 K/uL (150-450); RBC 2.88 M/uL (3.50-5.50); RDW-CV 13.2 % (11.9-14.6); WBC 10.5 K/uL (4.0-11.0)
[2016-12-18 05:09] LABS: PROTIME 13.9 SECONDS (9.8-11.4)
[2016-12-18 05:10] LABS: INR - (THERAPEUTIC) 1.32 (0.92-1.07)
[2016-12-18 05:16] LABS: ANION GAP 11.2 (10.0-19.0); CALCIUM 7.8 mg/dL (8.5-10.5); CREATININE 1.3 mg/dL (0.6-1.3); PHOSPHORUS 2.2 mg/dL (2.5-4.9); POTASSIUM 4.2 mMol/L (3.7-5.1)
[2016-12-19 04:43] LABS: BASOPHIL % 0.2 %; EOSINOPHIL # 0.1 K/uL (0.0-0.5); EOSINOPHIL % 1.2 %; HEMATOCRIT 29.3 % (37.0-53.0); HEMOGLOBIN 9.7 g/dL (11.0-16.0); IMMATURE GRANULOCYTE % 0.4 %; LYMPHOCYTE # 0.6 K/uL (0.8-4.0); LYMPHOCYTE % 5.8 %; MCH 33.4 pg (27.0-34.0); MCHC 33.1 gm/dL (32.0-36.5); MONOCYTE # 0.9 K/uL (0.0-1.0); MONOCYTE % 8.4 %; MPV 9.6 fl (9.4-12.4); NEUTROPHIL # (ANC) 8.5 K/uL (1.4-9.0); NRBC % 0 /100WBC (0-0.00); PLATELET COUNT 227 K/uL (150-450); RDW-CV 13.2 % (11.9-14.6); WBC 10.1 K/uL (4.0-11.0)
[2016-12-19 04:47] LABS: INR - (THERAPEUTIC) 1.08 (0.92-1.07); PROTIME 11.4 SECONDS (9.8-11.4)
[2016-12-19 04:54] LABS: ANION GAP 11.2 (10.0-19.0); CALCIUM 7.9 mg/dL (8.5-10.5); POTASSIUM 4.2 mMol/L (3.7-5.1)
[2016-12-19 10:10] LABS: BILIRUBIN URINE NEGATIVE (NEGATIVE); BLOOD URINE 150 /UL (NEGATIVE); COLOR URINE YELLOW (YELLOW); GLUCOSE URINE NEGATIVE (NEGATIVE); KETONE URINE NEGATIVE (NEGATIVE); LEUKOCYTES URINE 500 /UL (NEGATIVE); NITRITE URINE NEGATIVE (NEGATIVE); PROTEIN URINE 30 mg/dL (NEGATIVE); SPEC GRAVITY URINE 1.015 (1.003-1.035); TURBIDITY URINE 2+ (CLEAR); UROBILINOGEN URINE NORMAL (NORMAL)
[2016-12-19 10:24] LABS: WBC URINE 20-50 #/HPF (NEGATIVE)
[2016-12-19 10:25] LABS: BACTERIA URINE MODERATE (NEGATIVE); EPITHELIAL URINE 0-2 #/HPF (NEGATIVE); MUCUS URINE 1+ (NEGATIVE)
== END 2016-12-19 11:38 | DRG 853 ==
LOC: GPCU 08:00
PROVIDERS: Family Medicine; Internal Medicine; Internal Medicine Interventional Cardiology; Orthopaedic Surgery; ADMIT Internal Medicine
DX: A41.9 Sepsis, unspecified organism (principal); E43 Unspecified severe protein-calorie malnutrition; G93.41 Metabolic encephalopathy; N17.9 Acute kidney failure, unspecified; S72.142A Displaced intertrochanteric fracture of left femur, initial encounter for closed fracture; D68.51 Activated protein C resistance; I49.5 Sick sinus syndrome; N30.00 Acute cystitis without hematuria; G31.09 Other frontotemporal neurocognitive disorder; F02.80 Dementia in other diseases classified elsewhere, unspecified severity, without behavioral disturbance, psychotic disturbance, mood disturbance, and anxiety; N10 Acute pyelonephritis; Z68.1 Body mass index [BMI] 19.9 or less, adult; N31.9 Neuromuscular dysfunction of bladder, unspecified; E11.9 Type 2 diabetes mellitus without complications; E03.9 Hypothyroidism, unspecified; I10 Essential (primary) hypertension; K21.9 Gastro-esophageal reflux disease without esophagitis; Z86.73 Personal history of transient ischemic attack (TIA), and cerebral infarction without residual deficits; Z79.01 Long term (current) use of anticoagulants; F32.9 Major depressive disorder, single episode, unspecified; Z95.0 Presence of cardiac pacemaker; I34.0 Nonrheumatic mitral (valve) insufficiency; W18.30XA Fall on same level, unspecified, initial encounter; Y92.239 Unspecified place in hospital as the place of occurrence of the external cause; Z95.828 Presence of other vascular implants and grafts; Z87.01 Personal history of pneumonia (recurrent); K58.9 Irritable bowel syndrome, unspecified; N40.0 Benign prostatic hyperplasia without lower urinary tract symptoms; Z85.828 Personal history of other malignant neoplasm of skin; G43.909 Migraine, unspecified, not intractable, without status migrainosus; Z91.09 Other allergy status, other than to drugs and biological substances; R58 Hemorrhage, not elsewhere classified; Z86.718 Personal history of other venous thrombosis and embolism; Z78.1 Physical restraint status
CPT/HCPCS: A9500; C1713; C1751; C1785; C1898; J0690; J0696; J1200; J1265; J1335; J1630; J1644; J1650; J2060; J2250; J2785; J3010; J3370; J3480; J7040; J7050; J7120; P9017

== ENCOUNTER → 2016-12-07 | Outpatient (CLI) | payer MEDICARE, OTHER ==
[~2016-12-07] MED LIST: AMITIZA24 MCG PO; ATIVAN 1 MG1 MG PO; COUMADIN ** 9/62 MG PO; COZAAR100 MG PO; FLOMAX0.4 MG PO; LEVOTHROID(SYN75 MCG PO; MAG-OX-400(241400 MG PO; OMEPRAZOLE40 MG PO; STOOL SOFTENER100 M1 PO; VESICARE10 MG PO; VITAMIN B-1000 MCG/M SUB-Q; VITAMIN D-32000 UNI1 PO; ZOCOR20 MG PO
== END | disposition disaster alternative care site (69) ==
LOC: GAMB 08:20
DX: I49.9 Cardiac arrhythmia, unspecified (principal); R40.0 Somnolence; R55 Syncope and collapse; R53.1 Weakness; Z86.73 Personal history of transient ischemic attack (TIA), and cerebral infarction without residual deficits; Z79.01 Long term (current) use of anticoagulants; Z79.899 Other long term (current) drug therapy
CPT/HCPCS: A0425; A0426